=== PATIENT | female | born 2000 | race Caucasian/White ===

== ENCOUNTER 2020-04-06 09:07 | Day surgery (SDC) | payer BC, OTHER ==
[2020-04-05 08:44] VITALS: BMI 21.6
[2020-04-06 09:27] VITALS: TEMP 97.9
[2020-04-06] MEDS ORDERED: LACTATED RINGERS 1,000 ML IV ONE (09:27)
[2020-04-06] MEDS ORDERED: LIDOCAINE 1% (10MG/ML) FOR IV START INTRADERMA ONE (09:27)
[2020-04-06] MEDS ORDERED: PROPOFOL 10 MG/ML 20 ML VIAL IV ONE (10:37)
[2020-04-06] MEDS ORDERED: LIDOCAINE 1% INJ 10MG/ML (20 ML MDV) ONE (10:37)
--- NOTE | 2020-04-06 11:06 | P.PCN ---
Date of Procedure: 04/06/20 Description of Procedure: BRIEF HISTORY: Patient is a 19-year-old who seen in clinic for symptoms of GERD, controlled reflux and nausea and vomiting. She was on omeprazole daily at that time. She had her medical regimen altered but has not started yet with the change from daily to twice daily PPI with H2 antagonist at night. Also given antispasmodics as needed for abdominal cramping. 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 PROCEDURE PERFORMED: Esophagogastroduodenoscopy with biopsy. PREOPERATIVE DIAGNOSIS: GERD, reflux, nausea and vomiting. ESTIMATED BLOOD LOSS: Minimal. IV sedation per anesthesia. PROCEDURE: After informed consent was obtained, the patient was brought into the endoscopy unit. IV sedation was administered by Anesthesia under continuous monitoring. Initially the Olympus GIF-190 video endoscope was inserted into the mouth. Esophagus intubated without any difficulty. It was gradually advanced into the stomach and duodenum and carefully examined. The bulb and the second part of the duodenum appeared normal, with biopsies taken to rule out celiac sprue. The scope at this time was withdrawn to the stomach, adequately insufflated with air, and upon careful examination, mucosa of the antrum, body, cardia and the fundus appeared normal, except for some mild punctate erythema in the antrum and body suggestive of mild gastritis with biopsies taken. The scope was then withdrawn into the esophagus. The GE junction was located at 39 cm from the incisors and biopsied. The esophagus appeared normal, with mid esophageal biopsies taken. There were no erosions or ulcerations seen and the patient tolerated the procedure well. IMPRESSION: 1. Mild gastritis antrum and body, biopsied. 2. Biopsies of the duodenum, GE junction and mid esophagus. RECOMMENDATIONS: The findings of this examination were discussed with the patient and her mother. Okay to resume diet. Okay to resume medications. Await pathology from biopsies. Follow up in gastroenterology clinic as previously scheduled.
[2020-04-06 11:35] VITALS: BP 102/63; PULSE 60; RESP 16
== END 2020-04-06 11:47 | disposition home or self-care (01) ==
LOC: ORWHC2ENDO 09:07
PROVIDERS: ATTEND Internal Medicine
DX: K29.50 Unspecified chronic gastritis without bleeding (principal); K21.0 Gastro-esophageal reflux disease with esophagitis; Z79.3 Long term (current) use of hormonal contraceptives; Z79.899 Other long term (current) drug therapy
CPT/HCPCS: 81025; 88305; 43239; J2001; J2704

== ENCOUNTER → 2020-05-02 | Outpatient (CLI) | payer BC, OTHER ==
--- NOTE | 2020-05-02 22:52 | CT ---
EXAMINATION TYPE: CT abdomen wo con DATE OF EXAM: 05/02/2020 HISTORY: abdominal pain in particular right upper quadrant pain. Epigastric pain with vomiting for [address] DLP: 164.7 mGycm. Automated Exposure Control for Dose Reduction was Utilized. TECHNIQUE: CT scan of the abdomen is performed with oral but without IV contrast. COMPARISON: NONE FINDINGS: Within the limitations of a non-contrast study, the following observations are made. LUNG BASES: No significant abnormalities seen. LIVER/GB: Gallbladder not well seen and is felt contracted in appearance best identified sagittal adore ge 26. Liver size upper limits of normal. PANCREAS: No significant abnormality is seen. SPLEEN: No significant abnormality is seen. ADRENALS: No significant abnormality is seen. KIDNEYS: No renal stones or hydronephrosis. BOWEL: Oral contrast does not reach colonic level making evaluation of distal bowel slightly suboptim al. In addition patient has virtually no intra-abdominal fat making evaluation suboptimal. Moderately distended stomach with air contrast level. Mild to moderately contrast prominent first and second po rtion of duodenum. Transition to nondistended duodenum before SMA crossover. No suspicious small tonja l feces sign terminal ileum. Small or large bowel dilatation. LYMPH NODES: No greater than 1cm abdominal lymph nodes are appreciated. OSSEOUS STRUCTURES: Slight levoconvex scoliotic curvature positioning centered at L2-L3 level. OTHER: No significant additional abnormality is seen. IMPRESSION: Possible gastroparesis, correlate clinically. Delayed passage of ingested material to col onic level noted. No bowel obstruction.
== END | disposition home or self-care (01) ==
LOC: RADCTMAIN 19:01
PROVIDERS: ATTEND Family Medicine
DX: R10.11 Right upper quadrant pain (principal)
CPT/HCPCS: 74150